=== PATIENT | female | born 1965 | race Caucasian/White ===

== ENCOUNTER 2025-06-21 17:20 | Inpatient (IN) | payer OTHER ==
[~2025-06-21] VITALS: Ht 162.6 cm; Wt 76.2 kg
[2025-06-21 17:59] LABS: PLATELET COUNT, AUTOMATED 264 10^3/uL (150-450)
[2025-06-21 18:30] LABS: AMPHETAMINES LEVEL URINE NEGATIVE (NEGATIVE); BARBITURATES URINE NEGATIVE (NEGATIVE); BENZODIAZEPINES URINE NEGATIVE (NEGATIVE); COCAINE METABOLITE URINE NEGATIVE (NEGATIVE); METHADONE URINE NEGATIVE (NEGATIVE); OPIATES URINE NEGATIVE (NEGATIVE); PHENCYCLIDINE URINE NEGATIVE (NEGATIVE)
[2025-06-21 18:32] LABS: ETHYL ALCOHOL (ETHANOL) < 0.003 % (0.000-0.010)
[2025-06-21 18:33] LABS: SALICYLATE LEVEL < 3.0 MG/DL (<30)
[2025-06-21 18:34] LABS: ALT/SGPT 21 U/L (7.0-40); AST/SGOT 23 U/L (<34); CALCIUM LEVEL 9.5 MG/DL (8.3-10.6); CANNABINOIDS URINE POSITIVE (NEGATIVE); CARBON DIOXIDE LEVEL 26 MMOL/L (20-31); CHLORIDE LEVEL 106 MMOL/L (98-107); CREATININE FOR GFR 0.83 MG/DL (0.55-1.30); GLOMERULAR FILTRATION RATE 80.2 (>45); POTASSIUM SERUM 4.1 MMOL/L (3.5-5.1); SODIUM LEVEL 144 MMOL/L (136-145)
[2025-06-21] MEDS ORDERED: traZODone 50 MG TAB PO PRN (19:50)
[2025-06-21] MEDS ORDERED: ACETAMINOPHEN 325 MG TAB PO PRN (19:50)
[2025-06-21] MEDS ORDERED: IBUPROFEN 400 MG TAB PO PRN (19:50)
[2025-06-21] MEDS ORDERED: MAALOX 30 ML SUSP *UDC PO PRN (19:50)
[2025-06-21] MEDS ORDERED: MOM 30 ML SUSPENSION UDC PO PRN (19:50)
[2025-06-22] MEDS ORDERED: HOME MED LIST COMPLETE! XX SCH (00:25)
[2025-06-22 06:25] VITALS: BP 158/90; TEMP 97.7; O2SAT 98
[2025-06-22] MEDS: ESCITALOPRAM OXALATE 10 MG TABLET PO SCH (13:29)
[2025-06-22 18:32] VITALS: BP 122/90; TEMP 98.3; O2SAT 97
[2025-06-23 06:56] VITALS: BP 125/79; TEMP 97.7; O2SAT 98
[2025-06-23 09:44] VITALS: BP 119/93
[2025-06-23 16:12] VITALS: BP 134/80; TEMP 97.9; O2SAT 96
[2025-06-24 06:39] VITALS: BP 132/94; TEMP 97.9; O2SAT 96
[2025-06-24 09:37] VITALS: BP 137/97
[2025-06-24 16:48] VITALS: BP 137/89; TEMP 98.1; O2SAT 96
[2025-06-25 06:36] VITALS: BP 123/80; TEMP 97.5; O2SAT 97
[2025-06-25 09:06] VITALS: BP 138/89
[2025-06-25 09:09] VITALS: BP 138/89
[2025-06-25] MEDS ORDERED: LISI5TAB11 PO (09:24)
[2025-06-25] MEDS ORDERED: LEXA1TAB PO (09:24)
== END 2025-06-25 11:44 | disposition home or self-care (01) | DRG 881 ==
LOC: M ED 17:20 → M ED INP 19:48 → M PSY 21:04
PROVIDERS: ADMIT Psychiatry & Neurology Neurology; ATTEND Psychiatry & Neurology Neurology
DX: F32.A Depression, unspecified (principal); R45.851 Suicidal ideations; F12.90 Cannabis use, unspecified, uncomplicated; I10 Essential (primary) hypertension; D72.829 Elevated white blood cell count, unspecified